=== PATIENT | female | born 1945 | race Caucasian/White ===

== ENCOUNTER → 2018-07-06 | Outpatient (CLI) | payer OTHER | LOC: MRI 14:10 | DX: M47.818 Spondylosis without myelopathy or radiculopathy, sacral and sacrococcygeal region (principal); M48.08 Spinal stenosis, sacral and sacrococcygeal region; M25.451 Effusion, right hip; M25.452 Effusion, left hip; M76.01 Gluteal tendinitis, right hip; M76.02 Gluteal tendinitis, left hip ==